=== PATIENT | female | born 1975 | race African-American/Black ===

== ENCOUNTER 2017-02-27 10:07 | Emergency (ER) | payer MEDICAID ==
[~2017-02-27] VITALS: Ht 167.6 cm; Wt 85.0 kg
[~2017-02-27 10:07] MED LIST: IBUP-232 PO
[2017-02-27 10:09] VITALS: BP 166/99; PULSE 68; RESP 20; TEMP 98; O2SAT 100
[2017-02-27] MEDS ORDERED: IBUP800T23 PO (10:16)
[2017-02-27] MEDS ORDERED: AMOX500C PO (10:16)
--- NOTE | 2017-02-27 10:20 | PD ---
HPI Chief Complaint: Oral / Dental Pain or Problem Time Seen by Provider: 10:15 Travel History International Travel<30 days: No Contact w/Intl Traveler<30days: No Traveled to known affect area: No History of Present Illness HPI 41-year-old female presents emergency Department with complaint of right upper tooth pain for the last few days. Denies dental trauma. Denies fever, vomiting. Pain radiates to the right ear and is also complaining of headache. Had an open prescription of penicillin and has been taking it for the last 2 days. Called her dentist and was told to come to the ER because they could not see her immediately. Symptoms are mild in severity. Has no known allergies. No other medical complaints. No other modifying factors or associated signs and symptoms. PFSH Past Medical History Blood Disorders: No Cancer: No Cardiovascular Problems: No Diminished Hearing: No Endocrine: No Gastrointestinal Disorders: No Genitourinary: No Hypertension: Yes (NO TREATED) Immune Disorder: No Implanted Vascular Access Dvce: No Musculoskeletal: Yes (chronic back pain) Neurologic: No Psychiatric: No Reproductive: No Respiratory: No Immunizations Current: Yes Migraines: Yes Menopausal: No : 3 Para: 3 Miscarriage: 0 : 0 Tubal Ligation: Yes Past Surgical History Abdominal Surgery: Yes (UMBILICAL HERNIA REPAIR) Section: Yes (X2) Gynecologic Surgery: Yes (c section) Other Surgery: Yes (GALLSTONES REMOVED) Social History Alcohol Use: Yes Tobacco Use: Yes (1/2 PPD) Substance Use: No Allergies-Medications (Allergen,Severity, Reaction): Coded Allergies: No Known Allergies (Verified , 05/25/16) Reported Meds & Prescriptions Reported Meds & Active Scripts Active Ibuprofen 800 Mg Tab 800 Mg PO Q6HR PRN Amoxicillin 500 Mg Cap 500 Mg PO BID 10 Days Ibuprofen 600 Mg Tab 600 Mg PO Q8HR PRN Review of Systems Except as stated in HPI: all other systems reviewed are Neg Physical Exam Narrative GENERAL: Well-nourished, well-developed black female patient, in no acute distress; afebrile, nontoxic-appearing SKIN: Warm and dry. HEAD: Atraumatic. Normocephalic. No facial edema, erythema, tenderness on palpation. No lymphadenopathy. EYES: Pupils equal and round. No scleral icterus. No injection or drainage. ENT: Mucosa pink and moist. No erythema or exudates. No uvular edema. No uvular , palatal, or tonsillar deviation. Airway patent. EARS: Bilateral pinnae and external canals appear within normal limits. Right tympanic membranes without erythema, dullness or perforation. MOUTH: Mucous membranes moist, no lesions, tongue and gums appear normal. Tooth #3 with tenderness on palpation. Surrounding gingiva is without erythema , edema, drainage. No obvious abscess noted. NECK: Trachea midline. No lymphadenopathy. CARDIOVASCULAR: Regular rate. RESPIRATORY: No accessory muscle use. GASTROINTESTINAL: Obese. MUSCULOSKELETAL: No obvious deformities. No clubbing. No cyanosis. No edema. NEUROLOGICAL: Awake and alert. Oriented 3. No obvious cranial nerve deficits. Motor grossly within normal limits. Normal speech. PSYCHIATRIC: Appropriate mood and affect; insight and judgment normal. Data Data Last Documented VS Vital Signs Date Time Temp Pulse Resp B/P (MAP) Pulse Ox O2 Delivery O2 Flow Rate FiO2 02/27/17 10:09 98.0 68 20 166/99 (121) 100 Room Air Orders Orders Ibuprofen (Motrin) (02/27/17 10:30) [facility] Medical Decision Making Medical Screen Exam Complete: Yes Emergency Medical Condition: Yes Medical Record Reviewed: Yes Differential Diagnosis Dentalgia, dental abscess, gingivitis, dental caries Narrative Course 41-year-old female physical exam consistent with dentalgia to tooth #3. No obvious abscess noted. No facial edema, erythema. Patient is afebrile and nontoxic-appearing. Denies fever, vomiting. Patient provided emergency dental information sheet. Amoxicillin and ibuprofen prescribed for home. Ibuprofen administered in the ER. Instructed patient to follow up with dentist. Instructed patient to follow up with primary care provider. Patient verbalizes understanding and agreement with treatment plan. Patient is medically cleared and stable for discharge. Discussed reasons to return to the emergency department. Patient agrees with treatment plan. The patients vital signs are stable and the patient is stable for outpatient follow-up and treatment. Patient discharged home, stable and in no acute distress. Diagnosis Primary Impression: Dentalgia Referrals: [facility] Dentist Primary Care Physician Patient Instructions: Dental Abscess (ED), Dental Caries (ED), General Instructions, Toothache (ED) Departure Forms: Tests/Procedures, Work Release Enter return to work date: Feb 28, 2017 Additional Instructions: Complete full course of antibiotics Ibuprofen or Tylenol as directed and as needed to reduce pain and inflammation Warm or cool compresses to the affected area Follow-up with dentist Follow-up with primary care provider Return to emergency department immediately with worsening of symptoms Med/Other Pt SpecificInfo: Prescription(s) given Scripts Ibuprofen (Ibuprofen) 800 Mg Tab 800 MG PO Q6HR Y for PAIN, #30 TAB 0 Refills Prov: Shaista Thornton 02/27/17 Amoxicillin (Amoxicillin) 500 Mg Cap 500 MG PO BID for Infection for 10 Days, #20 CAP 0 Refills Prov: Shaista Thornton 02/27/17 Disposition: 01 DISCHARGE HOME Condition: Stable Shaista Thornton Feb 27, 2017 10:20
[2017-02-27] MEDS ORDERED: IBUPROFEN 800 MG TAB PO ONE (10:30)
[2017-02-27] MEDS ORDERED: IBUPROFEN 800 MG TAB ONE (10:55)
== END 2017-02-27 10:59 | disposition home or self-care (01) ==
LOC: NEPK 10:07
DX: K08.89 Other specified disorders of teeth and supporting structures (principal); F17.200 Nicotine dependence, unspecified, uncomplicated
CPT/HCPCS: 99283

== ENCOUNTER 2017-08-12 02:18 | Emergency (ER) | payer SELFPAY ==
[~2017-08-12] VITALS: Ht 167.6 cm; Wt 81.5 kg
[~2017-08-12 02:18] MED LIST changes: +AMOX500C PO; +IBUP1TAB7 PO
[2017-08-12 02:43] VITALS: BP 184/91; PULSE 75; RESP 18; TEMP 98.6; O2SAT 100
--- NOTE | 2017-08-12 02:53 | PD ---
HPI Chief Complaint: Pain: Acute or Chronic Time Seen by Provider: 02:45 Travel History International Travel<30 days: No Contact w/Intl Traveler<30days: No Traveled to known affect area: No History of Present Illness HPI 42-year-old black female presents emergency department complaint of right foot pain. She states that she has been having right foot pain now for the last several days. She states that she had an injury back in 2012. She has been here in the ER on 2 other occasions for the same problem. She has had x-rays 2 which were unremarkable for bony injury. She states that she has taken some ibuprofen and elevate her foot with some improvement. Worse with walking standing on her feet. History Past Medical Histgory Medical History: Denies Significant Hx Menopausal: No Hx Cancer: No Social History Alcohol Use: Yes Tobacco Use: Yes (5CIGS PER DAY) Allergies-Medications (Allergen,Severity, Reaction): Coded Allergies: No Known Allergies (Verified Adverse Reaction, Unknown, 08/12/17) Reported Meds & Prescriptions Reported Meds & Active Scripts Active Ibuprofen 800 Mg Tab 800 Mg PO Q6HR PRN Amoxicillin 500 Mg Cap 500 Mg PO BID 10 Days Ibuprofen 600 Mg Tab 600 Mg PO Q8HR PRN Review of Systems Except as stated in HPI: all other systems reviewed are Neg Physical Exam Narrative GENERAL: This is a well-nourished, well-developed patient, in no apparent distress. SKIN: No rashes, ecchymoses or lesions. Warm and dry. HEAD: Atraumatic. Normocephalic. EYES: PERRL, EOMI, no discharge or injection. No scleral icterus. EARS: Clear NOSE: Nasal turbinates appear normal. THROAT: Mucosa pink and moist. Airway patent. NECK: Trachea midline. supple, moves head freely. LUNGS: Clear to auscultation. CV: Regular in rhythm. ABDOMEN: Soft nontender. EXT: No clubbing cyanosis or edema. Tenderness across the dorsum of the right foot. No erythema, edema or ecchymosis. No pain in the distal forefoot, heel, Achilles, medial lateral malleolus. Neurovascular intact. Data Data Last Documented VS Vital Signs Date Time Temp Pulse Resp B/P (MAP) Pulse Ox O2 Delivery O2 Flow Rate FiO2 08/12/17 02:43 98.6 75 18 184/91 (122) 100 Room Air MDM Medical Screen Exam Complete: Yes Emergency Medical Condition: No Differential Diagnosis MDM: High Differential diagnoses: Fracture, sprain, strain, dislocation, contusion, neurovascular injury Narrative Course A medical screening exam was performed: At the time of evaluation the presenting medical condition was determined not to be of an emergent nature. The patient was given the option of receiving additional care, but declined. Patient was given options for additional community resources from which to obtain care. The Patient Has Been advised to seek medical attention for their presenting complaint. The patient has been advised to return to the ER at any time if an emergent condition develops. Primary Impression: Encounter for medical screening examination Condition: Stable Srinivas Chamorro Aug 12, 2017 02:53
== END 2017-08-12 02:59 | disposition left against medical advice (07) ==
LOC: NEPD 02:18
DX: M79.671 Pain in right foot (principal); F17.210 Nicotine dependence, cigarettes, uncomplicated
CPT/HCPCS: 99281